=== PATIENT | female | born 1995 | race Caucasian/White ===

== ENCOUNTER → 2018-01-11 | Emergency (ER) | END | disposition home or self-care (01) ==

== ENCOUNTER 2018-01-13 17:45 | Emergency (ER) | END 2018-01-13 22:12 | disposition home or self-care (01) ==

== ENCOUNTER 2018-01-27 12:00 | Emergency (ER) | END 2018-01-27 14:23 | disposition home or self-care (01) ==

== ENCOUNTER 2018-07-17 14:25 | Emergency (ER) | END 2018-07-17 17:36 | disposition home or self-care (01) ==